=== PATIENT | male | born 1985 | race Hispanic/Latino ===

== ENCOUNTER 2019-03-30 17:12 | Emergency (ER) | payer MEDICAID ==
[~2019-03-30] VITALS: Ht 175.3 cm; Wt 91.8 kg
[2019-03-30] MEDS ORDERED: KETOROLAC 30 MG/ML VIAL (J1885) IM ONE (20:45)
[2019-03-30] MEDS ORDERED: LIDOCAINE 5% (LIDODERM) PATCH TD ONE (20:45)
[2019-03-30] MEDS ORDERED: methylPREDNISolone INJ 125 MG/2 ML VIAL (J2930) IM ONE (20:45)
[2019-03-30] MEDS ORDERED: **NOTE PATIENT COMMENT** MISC XX SCH (21:00)
--- NOTE | 2019-03-30 22:27 | REPVR ---
PROCEDURE INFORMATION: Exam: CT Lumbar Spine Without Contrast Exam date and time: 03/30/2019 9:25 PM Clinical history: 33 years old, male; Pain; Lumbago with sciatica; Bilateral; Additional info: Chronic spine pain, with leg numbness TECHNIQUE: Imaging protocol: Computed tomography images of the lumbar spine without contrast. Radiation optimization: All CT scans at this facility use at least one of these dose optimization techniques: automated exposure control; mA and/or kV adjustment per patient size (includes targeted exams where dose is matched to clinical indication); or iterative reconstruction. COMPARISON: No relevant prior studies available. FINDINGS: Vertebrae: Normal spinal curvature, vertebral body heights, and alignment. No spinal fracture or acute subluxation. Discs/Spinal canal/Neural foramina: Mild L3-L4 annular disc bulge. L4-L5 disc bulge and moderate central disc protrusion causes moderate to severe spinal stenosis. Small L5-S1 disc protrusion with mild stenosis. Mild lower lumbar degenerative facet arthropathy. Liver: Hepatic steatosis. Soft tissues: Unremarkable. IMPRESSION: 1. No acute vertebral fracture/subluxation. 2. L4-L5 disc bulge and moderate central disc protrusion causes moderate to severe spinal stenosis. Electronically signed by: Carlos Alberto Medina On 03/30/2019 22:27:32 PM
[2019-03-30] MEDS ORDERED: NAPR-885 PO (22:48)
[2019-03-30] MEDS ORDERED: PRED20TA PO (22:48)
[2019-03-30 23:06] VITALS: BP 184/98
== END 2019-03-30 23:08 | disposition home or self-care (01) ==
LOC: M ED 17:12
DX: M51.26 Other intervertebral disc displacement, lumbar region (principal); M48.061 Spinal stenosis, lumbar region without neurogenic claudication; I10 Essential (primary) hypertension; F17.210 Nicotine dependence, cigarettes, uncomplicated
CPT/HCPCS: 72131; 96372; 99283; J1885; J2930